=== PATIENT | female | born 1960 | race Two or more races ===

== ENCOUNTER 2023-09-10 02:36 | Emergency (ER) | payer OTHER ==
[~2023-09-10] VITALS: Ht 152.4 cm; Wt 74.8 kg
[2023-09-10] MEDS ORDERED: TOPROL XL100 M1 PO (02:57)
[2023-09-10] MEDS ORDERED: COZAAR100 MG PO (02:57)
[2023-09-10] MEDS ORDERED: NEURONTIN300 MG PO (02:58)
[2023-09-10] MEDS ORDERED: ELIQUIS2.5 MG PO (02:58)
[2023-09-10] MEDS ORDERED: SYNTHROID112 MCG PO (02:58)
[2023-09-10] MEDS ORDERED: KETOROLAC TROMETHAMINE 60 MG VIAL IM ONE (03:00)
[2023-09-10 03:34] LABS: HEMATOCRIT 37.3 % (36.0-45.00); HEMOGLOBIN 12.3 g/dL (12.0-15.00); MEAN CELL VOLUME 85.8 fL (80.00-100.00); MEAN CORPUSCULAR HEMOGLOBIN 28.2 pg (27.00-32.0); MEAN CORPUSCULAR HGB CONC 32.9 g/dl (32.0-36.0); PLATELET COUNT 201 K/uL (150-450); RED BLOOD COUNT 4.35 M/uL (4.00-6.00); RED CELL DISTRIBUTION WIDTH 14.1 % (11.5-14.5)
[2023-09-10] MEDS ORDERED: ACETAMINOPHEN 500 MG GEL..CAP PO ONE (04:00)
[2023-09-10 04:04] LABS: ALBUMIN 3.8 gm/dL (3.4-5.0); BILIRUBIN TOTAL 0.3 mg/dL (0.3-1.2); CALCIUM 9.1 mg/dL (8.5-10.1); CREATININE SERUM 0.68 mg/dL (0.55-1.02); GFR 87.11; GLOBULINA 2.7 G/DL (2.4-3.5); POTASSIUM 3.23 mEq/L (3.5-5.1); TOTAL PROTEIN 6.5 gm/dL (6.4-8.2)
== END 2023-09-10 04:46 | disposition home or self-care (01) ==
LOC: ER 02:36
PROVIDERS: General Practice
DX: R07.89 Other chest pain (principal); I10 Essential (primary) hypertension; Z88.0 Allergy status to penicillin; Z88.8 Allergy status to other drugs, medicaments and biological substances
CPT/HCPCS: 36415; 71045; 93005; 96372; 99284; J1885

== ENCOUNTER 2024-03-11 06:55 | Emergency (ER) | payer OTHER ==
[~2024-03-11] VITALS: Ht 149.9 cm; Wt 71.2 kg
[~2024-03-11 06:55] MED LIST: COZAAR100 MG PO; ELIQUIS2.5 MG PO; NEURONTIN300 MG PO; SYNTHROID112 MCG PO; TOPROL XL100 M1 PO
[2024-03-11] MEDS ORDERED: GABAPENTIN400 MG PO (07:39)
[2024-03-11] MEDS ORDERED: ATORVASTATIN CA20 MG PO (07:40)
[2024-03-11] MEDS ORDERED: CLONAZEPAM0.5 MG PO (07:40)
[2024-03-11] MEDS ORDERED: DEXAMETHASONE SODIUM PHOSPHATE 4 MG/ML VIAL IM STA (08:26)
[2024-03-11] MEDS ORDERED: KETOROLAC TROMETHAMINE 30 MG VIAL IM STA (08:26)
[2024-03-11] MEDS ORDERED: DEXAMETHASONE SODIUM PHOSPHATE 4 MG/ML VIAL ONE (08:31)
[2024-03-11] MEDS ORDERED: KETOROLAC TROMETHAMINE 30 MG VIAL ONE (08:31)
[2024-03-11 08:44] LABS: MEAN CELL VOLUME 85.5 fL (80.00-100.00); MEAN CORPUSCULAR HEMOGLOBIN 28.5 pg (27.00-32.0); MEAN CORPUSCULAR HGB CONC 33.4 g/dl (32.0-36.0); PLATELET COUNT 276 K/uL (150-450); RED BLOOD COUNT 4.56 M/uL (4.00-6.00); RED CELL DISTRIBUTION WIDTH 14.5 % (11.5-14.5)
[2024-03-11 09:29] LABS: CALCIUM 9.6 mg/dL (8.5-10.1); CREATININE SERUM 0.58 mg/dL (0.55-1.02); GFR 104.66
== END 2024-03-11 10:07 | disposition home or self-care (01) ==
LOC: ER 06:57
PROVIDERS: General Practice
DX: M25.532 Pain in left wrist (principal); Z88.0 Allergy status to penicillin; Z91.041 Radiographic dye allergy status
CPT/HCPCS: 29125; 36415; 73110; 96372; 99283; J1100; J1885

== ENCOUNTER → 2024-05-14 | Emergency (ER) | payer OTHER ==
[~2024-05-14] VITALS: Ht 149.9 cm; Wt 72.1 kg
[~2024-05-14] MED LIST changes: +ATORVASTATIN CA20 MG PO; +CLONAZEPAM0.5 MG PO; +EZALLOR SPRINKL20 MG; +GABAPENTIN400 MG PO; +KETOROLAC TROMETHAMINE 60 MG VIAL IM STA
[2024-05-14 12:09] VITALS: BP 107/58; O2SAT 98
[2024-05-14 13:49] LABS: HEMATOCRIT 37.8 % (36.0-45.00); HEMOGLOBIN 12.6 g/dL (12.0-15.00); MEAN CELL VOLUME 85.1 fL (80.00-100.00); MEAN CORPUSCULAR HEMOGLOBIN 28.4 pg (27.00-32.0); MEAN CORPUSCULAR HGB CONC 33.3 g/dl (32.0-36.0); PLATELET COUNT 228 K/uL (150-450); RED BLOOD COUNT 4.44 M/uL (4.00-6.00); RED CELL DISTRIBUTION WIDTH 14.5 % (11.5-14.5)
[2024-05-14 14:54] LABS: CALCIUM 9.9 mg/dL (8.5-10.1); CREATININE SERUM 0.52 mg/dL (0.55-1.02); GFR 118.72; POTASSIUM 4.1 mEq/L (3.5-5.1)
== END | disposition home or self-care (01) ==
LOC: ER 11:28
PROVIDERS: General Practice
DX: M94.0 Chondrocostal junction syndrome [Tietze] (principal); R51.9 Headache, unspecified; I10 Essential (primary) hypertension; Z88.0 Allergy status to penicillin; Z91.041 Radiographic dye allergy status
CPT/HCPCS: 36415; 71045; 96372; 99283; J1885

== ENCOUNTER 2024-12-24 07:07 | Outpatient (CLI) | payer OTHER ==
[~2024-12-24 07:07] MED LIST changes: -KETOROLAC TROMETHAMINE 60 MG VIAL IM STA
== END 2024-12-24 07:08 | disposition home or self-care (01) ==
LOC: NUCLEAR 07:07
PROVIDERS: ATTEND Internal Medicine
DX: M25.59 Pain in other specified joint (principal)
CPT/HCPCS: 78315; A9503